=== PATIENT | female | born 2000 | race Caucasian/White ===

== ENCOUNTER 2022-08-16 17:45 | Emergency (ER) | payer SELFPAY | END 2022-08-16 19:30 | disposition home or self-care (01) | LOC: JD.ED 17:45 | DX: M25.561 Pain in right knee (principal) | CPT/HCPCS: 73562-26-RT; 73562-RT; 99283 ==

== ENCOUNTER 2023-02-08 15:39 | Emergency (ER) | payer SELFPAY | END 2023-02-08 16:57 | disposition home or self-care (01) | LOC: JD.ED 15:39 | DX: J02.0 Streptococcal pharyngitis (principal) | CPT/HCPCS: 87651-QW; 99283 ==

== ENCOUNTER 2023-02-16 14:54 | Emergency (ER) | payer SELFPAY ==
[2023-02-16] MEDS ORDERED: Cetirizine 10 MG Tab PO ONE (19:01)
== END 2023-02-16 19:20 | disposition home or self-care (01) ==
LOC: JD.ED 14:54
DX: R21 Rash and other nonspecific skin eruption (principal); Z88.0 Allergy status to penicillin; Z88.8 Allergy status to other drugs, medicaments and biological substances
CPT/HCPCS: 99282; 99283

== ENCOUNTER 2023-03-20 16:00 | Emergency (ER) | payer SELFPAY ==
[2023-03-20] MEDS ORDERED: Famotidine 20 MG Tab PO ONE (17:22)
== END 2023-03-20 19:35 | disposition home or self-care (01) ==
LOC: JD.ED 16:00
DX: J30.9 Allergic rhinitis, unspecified (principal); K21.9 Gastro-esophageal reflux disease without esophagitis; E66.9 Obesity, unspecified; Z68.41 Body mass index [BMI] 40.0-44.9, adult; Z86.16 Personal history of COVID-19; Z88.0 Allergy status to penicillin; Z88.1 Allergy status to other antibiotic agents; Z79.899 Other long term (current) drug therapy
CPT/HCPCS: 87651; 99283; A9270

== ENCOUNTER 2023-03-26 20:18 | Emergency (ER) | payer SELFPAY ==
[2023-03-26 22:17] LABS: CORONAVIRUS COVID-19 NAA NEGATIVE (NEGATIVE); INFLUENZA A NAA NEGATIVE (NEGATIVE); RESPIRATORY SYNCYTIAL VIR NAA NEGATIVE (NEGATIVE)
== END 2023-03-27 01:17 | disposition home or self-care (01) ==
LOC: JD.ED 20:18
DX: J02.9 Acute pharyngitis, unspecified (principal); R19.7 Diarrhea, unspecified; K21.9 Gastro-esophageal reflux disease without esophagitis; E66.9 Obesity, unspecified; Z88.0 Allergy status to penicillin; Z88.8 Allergy status to other drugs, medicaments and biological substances; Z86.16 Personal history of COVID-19; Z20.822 Contact with and (suspected) exposure to COVID-19; Z68.41 Body mass index [BMI] 40.0-44.9, adult
CPT/HCPCS: 0241U; 87651; 99283

== ENCOUNTER 2023-04-11 11:15 | Emergency (ER) | payer SELFPAY ==
[2023-04-11] MEDS ORDERED: Lidocaine 1% 10 ML MDV INJECT ONE (11:43)
== END 2023-04-11 12:11 | disposition home or self-care (01) ==
LOC: JD.ED 11:15
DX: S61.210A Laceration without foreign body of right index finger without damage to nail, initial encounter (principal); K21.9 Gastro-esophageal reflux disease without esophagitis; E66.9 Obesity, unspecified; Z86.16 Personal history of COVID-19; Z88.0 Allergy status to penicillin; Z88.1 Allergy status to other antibiotic agents; Z79.899 Other long term (current) drug therapy; W26.8XXA Contact with other sharp object(s), not elsewhere classified, initial encounter
CPT/HCPCS: 12001; 99282; 99283; J3490

== ENCOUNTER 2023-12-22 01:30 | Emergency (ER) | payer SELFPAY ==
[2023-12-22] MEDS: cefTRIAXone 1 GM, Lidocaine 1% 2.1 ML IM ONE (02:18)
[2023-12-22] MEDS: Ketorolac 60 MG/2 ML SDV IM ONE (02:21)
== END 2023-12-22 02:35 | disposition home or self-care (01) ==
LOC: JD.ED 01:30
DX: N75.0 Cyst of Bartholin's gland (principal); Z76.0 Encounter for issue of repeat prescription; Z79.899 Other long term (current) drug therapy; Z86.16 Personal history of COVID-19; Z88.0 Allergy status to penicillin; Z88.1 Allergy status to other antibiotic agents
CPT/HCPCS: 96372; 99283; J0696; J1885; J3490